=== PATIENT | female | born 2000 | race African-American/Black ===

== ENCOUNTER 2022-04-04 16:17 | Emergency (ER) | payer OTHER ==
[~2022-04-04] VITALS: Ht 162.6 cm; Wt 68.9 kg
[2022-04-04] MEDS ORDERED: CEPHALEXIN500 MG PO (17:33)
== END 2022-04-04 17:35 | disposition home or self-care (01) ==
LOC: FSED 17:10
DX: S61.411A Laceration without foreign body of right hand, initial encounter (principal); W25.XXXA Contact with sharp glass, initial encounter; Y92.89 Other specified places as the place of occurrence of the external cause
CPT/HCPCS: 99283

== ENCOUNTER 2023-02-07 12:05 | Emergency (ER) | payer SELFPAY ==
[~2023-02-07] VITALS: Ht 162.6 cm; Wt 68.9 kg
[~2023-02-07 12:05] MED LIST: CEPHALEXIN500 MG PO
[2023-02-07 12:12] VITALS: O2SAT 100
== END 2023-02-07 13:58 | disposition home or self-care (01) ==
LOC: ER 12:13
DX: R50.9 Fever, unspecified (principal); J02.0 Streptococcal pharyngitis
CPT/HCPCS: 83518; 99282